=== PATIENT | male | born 1965 ===

== ENCOUNTER 2017-12-06 05:11 | Inpatient (IN) | payer OTHER ==
[~2017-12-06] VITALS: Ht 167.6 cm; Wt 71.7 kg
[2017-12-06] VITALS (15 sets, daily range): BP systolic 108–130; BP diastolic 49–77
[2017-12-06] MEDS ORDERED: GABAPENTIN300 MG ORAL (06:34)
[2017-12-06] MEDS ORDERED: BACLOFEN10 MG ORAL (06:34)
[2017-12-06] MEDS ORDERED: IBUPROFEN600 MG ORAL (06:34)
[2017-12-06] MEDS ORDERED: NORCO 5-325 TA1 EAC1 ORAL (06:34)
[2017-12-06] MEDS ORDERED: ceFAZolin sod 2 GM in D5W 110 ML IVPB ONE (07:00)
[2017-12-06] MEDS ORDERED: Vancomycin 1gm inj IVPB ONE (07:19)
[2017-12-06] MEDS ORDERED: Lidocaine 1% 10mg/ml/Epi 0.005mg/ml 30ml vial INJ ONE (07:20)
[2017-12-06] MEDS ORDERED: Succinylcholine 20mg/ml 10ml vial ONE (07:20)
[2017-12-06] MEDS ORDERED: Zemuron 50mg/5ml Inj IV ONE ×3 (07:20→09:32)
[2017-12-06] MEDS ORDERED: Thrombin 5000 units TOPIC ONE ×2 (07:20→09:28)
[2017-12-06] MEDS ORDERED: Bacitracin 50000 Units Vial ONE ×2 (07:20→10:13)
--- NOTE | 2017-12-06 07:27 | Pre-Procedure Note/Attestation ---
Pre-Procedure Note/Attestation Complete Prior to Procedure Procedure Narrative: L45 AND L5S1 DECOMPRESSION AND FUSION AND INSTRUMENTATION AND INTERBODY FUSION Indications for Procedure Pre-Operative Diagnosis: LUMBAR SPONDLOSIS WITH RADICULOPATHY DISCOGRAM CONCORDANT WITH NORMAL CONTROL Attestation I attest that I discussed the nature of the procedure; its benefits; risks and complications; and alternatives (and the risks and benefits of such alternatives ), prior to the procedure, with the patient (or the patient's legal sales representative). I attest that, if there was a reasonable possibility of needing a blood transfusion, the patient (or the patient's legal sales representative) was given the [place] Department of Health Services standardized written summary, pursuant to the [place] Blood Safety Act ([place] Health and Safety Code # 1645, as amended). I attest that I re-evaluated the patient just prior to the surgery and that there has been no change in the patient's H&P, except as documented below: DAVID THOMAS Dec 06, 2017 07:27
[2017-12-06] MEDS ORDERED: NS Irrig 1000ml IRRIG ONE ×2 (07:30→09:27)
[2017-12-06] MEDS ORDERED: Norco 5mg/325mg tab ORAL PRN (07:30)
[2017-12-06] MEDS ORDERED: Naloxone 0.4mg/ml Inj IVP PRN (07:30)
[2017-12-06] MEDS ORDERED: Midazolam 2mg/2ml Inj ONE (07:52)
[2017-12-06] MEDS ORDERED: Propofol 200mg/20ml IV ONE ×3 (07:54→11:10)
[2017-12-06] MEDS ORDERED: Lidocaine 1% MPF 10mg/ml 5ml ONE (08:23)
[2017-12-06] MEDS ORDERED: Labetalol 5mg/ml 20ml vial IV ONE (08:40)
[2017-12-06] MEDS ORDERED: LR 1000ml 1,000 ML IVLG SCH (09:01)
[2017-12-06] MEDS ORDERED: DiphenhydrAMINE 50mg/ml Inj IVP PRN (09:15)
[2017-12-06] MEDS ORDERED: Midazolam 2mg/2ml Inj IVP PRN (09:15)
[2017-12-06] MEDS ORDERED: Ketorolac 30mg Inj IV PRN (09:15)
[2017-12-06] MEDS ORDERED: fentaNYL 100 mcg/2 mL IV PRN (09:15)
[2017-12-06] MEDS ORDERED: Acetaminophen (Non formulary) 100 ML IV ONE (09:15)
[2017-12-06] MEDS ORDERED: Glycopyrrolate 0.2mg/ml 1ml Vial ONE (10:00)
[2017-12-06] MEDS ORDERED: fentaNYL 100 mcg/2 mL IV ONE (11:10)
[2017-12-06] MEDS ORDERED: Meperidine 50mg/ml Inj(FOR RIGORS ONLY) ONE (12:15)
[2017-12-06] MEDS ORDERED: Alfentanil 2ml Inj ONE (12:45)
--- NOTE | 2017-12-06 13:38 | Brief Operative Note ---
Immediate Post Operative Note Operative Note Pre-op Diagnosis: LUMBAR SPONDLOSIS WITH RADICULOPATHY DISCOGRAM CONCORDANT WITH NORMAL CONTROL Procedure: POSTERIOR FUSION, DECOMPRESSION AND INSTRUMENTATION AT L45 AND L5S1 Findings: consistent w/pre-op dx studies Surgeon: WILLIAM Fruit Canner: CATRACHITO Anesthesiologist: ROSEMARY Anesthesia: general Specimen: yes Complications: none Condition: stable Fluids: 1000CC CRYSTALLOID Estimated Blood Loss: minimal - 200CC Drains: hemovac Implant(s) used?: Yes DAVID THOMAS Dec 06, 2017 13:37
[2017-12-06] MEDS: Hydromorphone 0.5mg/0.5ml inj IVP PRN ×2 (13:45→14:00)
--- NOTE | 2017-12-06 15:01 | Diagnostic Imaging Report ---
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 Initial images demonstrate localizing needles. Completion images document posterior fusion and placement of disc spacers involving the lower lumbosacral spine. Impression: Intraoperative imaging, as described
[2017-12-06] MEDS: D5 1/2NS 1,000 ML IV SCH (16:12)
[2017-12-06] MEDS: ceFAZolin sod 1 GM in NS 55 ML IV SCH (17:14)
[2017-12-06] MEDS ORDERED: LR 1000ml ONE (17:30)
[2017-12-06] MEDS ORDERED: NS Irrig 1000ml ONE (17:30)
[2017-12-06] MEDS ORDERED: Sterile Water Irrig 1000ml IRRIG ONE (17:30)
[2017-12-06] MEDS: Docusate 100mg cap ORAL SCH (18:00)
--- NOTE | 2017-12-06 18:13 | General Progress Note ---
Progress Note Progress Note Doing well post op pain well controlled leg pain resolved avss a and o time 3 5/5 motor in the ue and le calves soft and nt lt intact a: doing well post op P: oob/pt brace pain management medicine follow up scds DAVID THOMAS Dec 06, 2017 18:13
[2017-12-06] MEDS: HYDROcodone/Acetamin 7.5/325 tab ORAL PRN (18:48)
[2017-12-07] MEDS: ceFAZolin sod 1 GM in NS 55 ML IV SCH ×2 (00:12→08:51)
[2017-12-07] MEDS: D5 1/2NS 1,000 ML IV SCH ×3 (03:22→21:52)
[2017-12-07 04:00] VITALS: BP 130/79
[2017-12-07 08:00] VITALS: BP 144/83
[2017-12-07] MEDS: Docusate 100mg cap ORAL SCH ×2 (08:51→18:09)
[2017-12-07] MEDS: HYDROcodone/Acetamin 7.5/325 tab ORAL PRN ×3 (11:32→22:28)
--- NOTE | 2017-12-07 11:55 | General Progress Note ---
Progress Note Progress Note DOING WELL LEG PAIN RESOLVED AVSS A AND O TIMES 3 INC CDI HV 50 MOTOR 5/5 IN THE LE CALVES SOFT AND NT DOING WELL POST OP OOB PT DC HU MEDICINE FU PAIN MANAGEMENT DAVID THOMAS Dec 07, 2017 11:55
[2017-12-07 12:00] VITALS: BP 94/62
--- NOTE | 2017-12-07 14:37 | 48 Hour Post Anesthesia Eval ---
Post Anesthesia Evaluation Procedure: TLIF L4-L5 L5-S1 Date of Evaluation: Dec 07, 2017 Time of Evaluation: 14:36 Blood Pressure Systolic: 104 0: 72 Pulse Rate: 68 Respiratory Rate: 22 Temperature (Fahrenheit): 97.6 O2 Sat by Pulse Oximetry: 98 Airway: patent Nausea: No Vomiting: No Pain Intensity: 3 Hydration Status: adequate Cardiopulmonary Status: stable Mental Status/LOC: patient returned to baseline Follow-up Care/Observations: n/a Post-Anesthesia Complications: none Follow-up care needed: N/A AMOL STONER M.D. Dec 07, 2017 14:37
--- NOTE | 2017-12-07 15:04 | History and Physical ---
History of Present Illness General Date patient seen: Dec 07, 2017 Present Illness HPI 52 year old gentleman with hx of Lumbar Spondylosis [place] [facility] L45 AND L5S1 DECOMPRESSION AND FUSION AND INSTRUMENTATION AND INTERBODY FUSION. Post operatively he is admitted to surgical floor for post op treatment. Allergies: Coded Allergies: No Known Allergies (Unverified , 12/04/17) Medication History Scheduled Baclofen* (Baclofen*), 10 MG ORAL BID, (Reported) Gabapentin* (Gabapentin*), 300 MG ORAL BEDTIME, (Reported) Scheduled PRN Hydrocodone Bit/Acetaminophen 5-325* ([place] 5-325 Tablet*), 1 TAB ORAL Q4H PRN for For Pain, (Reported) Ibuprofen* (Motrin*), 600 MG ORAL Q6H PRN for For Pain, (Reported) Patient History Healthcare decision maker LISSET SARAH- Resuscitation status Full Code Advanced Directive on File Past Medical/Surgical History Past Medical/Surgical History: (1) Lumbar radicular pain Review of Systems Constitutional: Reports: see HPI Musculoskeletal: Reports: see HPI Neurological: Reports: see HPI Physical Exam General Appearance: WD/WN, no apparent distress Lines, tubes and drains: peripheral, central line HEENT: normocephalic, atraumatic Neck: non-tender, normal alignment Respiratory/Chest: chest wall non-tender, lungs clear Breasts: no masses Cardiovascular/Chest: normal peripheral pulses, normal rate Abdomen: normal bowel sounds, non tender Genitourinary/Rectal: normal genital exam Extremities: normal range of motion Skin Exam: normal pigmentation Neurologic: conventional mortgage underwriter II-XII grossly normal Last 24 Hour Vital Signs Date Time Temp Pulse Resp B/P (MAP) Pulse Ox O2 Delivery O2 Flow Rate FiO2 12/07/17 14:37 207.7 68 22 98 12/07/17 12:00 98.6 69 17 94/62 98 98.6 12/07/17 08:00 97.6 65 19 144/83 97 97.6 12/07/17 05:01 98.6 12/07/17 04:31 98.6 12/07/17 04:00 98.3 68 20 130/79 100 Nasal Cannula 2.0 98.3 12/07/17 00:22 98.6 12/06/17 23:00 98.0 67 20 113/65 100 Nasal Cannula 2.0 98.0 12/06/17 20:00 97.7 69 20 115/72 100 Nasal Cannula 2.0 97.7 12/06/17 20:00 98.6 12/06/17 18:48 98.6 12/06/17 16:43 98.6 12/06/17 16:00 98.6 76 18 108/72 100 Nasal Cannula 2.0 98.6 12/06/17 15:00 98.8 87 16 115/72 100 Nasal Cannula 2.0 98.8 Intake and Output 12/06/17 12/07/17 19:00 07:00 Intake Total 1915 ml 1925 ml Output Total 1630 ml 720 ml Balance 285 ml 1205 ml Intake Oral 360 ml 720 ml IV Total 1555 ml 1205 ml Output Urine Total 1350 ml 700 ml Drainage Total 80 ml 20 ml Estimated Blood Loss 200 ml Height (Feet): 5 Height (Inches): 6.00 Weight (Pounds): 158 Medications Current Medications Medications (Trade) Dose Ordered Sig/Gloria Route PRN Reason Start Time Stop Time Status Last Admin Dose Admin Acetaminophen/ Hydrocodone Bitart ([place] 5/325) 1 tab Q3H PRN ORAL pain score 1-3 12/06/17 07:30 12/13/17 07:29 Acetaminophen/ Hydrocodone Bitart ([place] 7.5/325) 1 tab Q3H PRN ORAL pain score 4-6 12/06/17 07:30 12/13/17 07:29 12/07/17 11:32 Acetaminophen/ Hydrocodone Bitart ([place] 7.5/325) 2 tab Q3H PRN ORAL pain scale 7-10 12/06/17 07:30 12/13/17 07:29 12/06/17 18:48 Dextrose/Sodium Chloride 1,000 ml @ 100 mls/hr Q10H IV 12/06/17 15:45 01/05/18 15:44 12/07/17 11:31 Docusate Sodium (Colace) 100 mg TWICE A DAY ORAL 12/06/17 18:00 01/05/18 17:59 12/07/17 08:51 Hydromorphone HCl (Dilaudid) 1 mg Q2H PRN IVP Breakthrough pain 12/06/17 15:30 12/13/17 15:29 12/07/17 08:52 Hydromorphone HCl (Dilaudid) 1 mg Q4H PRN SUBQ Mild Pain 1-3 12/06/17 15:30 12/13/17 15:29 12/06/17 16:13 Hydromorphone HCl (Dilaudid) 2 mg Q3H PRN SUBQ Severe Pain (Pain Scale 7-10) 12/06/17 07:30 12/13/17 07:29 12/07/17 04:31 Hydromorphone HCl (Dilaudid) 2 mg Q4H PRN SUBQ Moderate Pain (Pain Scale 4-6) 12/06/17 07:30 12/13/17 07:29 Naloxone HCl (Narcan) 0.1 mg PRN PRN IVP RR<12/min, pt unarousable 12/06/17 07:30 01/05/18 07:29 Ondansetron HCl (Zofran) 4 mg Q6H PRN IVP Nausea & Vomiting 12/06/17 18:00 01/05/18 17:59 Assessment/Plan Problem List: (1) L45 AND L5S1 DECOMPRESSION AND FUSION Assessment/Plan post op care analgesics pt/ot dvt prophylaxis dc home when ok with surgeon Luis Carlos Whaley MD Dec 07, 2017 15:04
--- NOTE | 2017-12-07 15:15 | Operative Note - Dictated ---
DATE OF OPERATION: 12/06/2017 PREOPERATIVE DIAGNOSES: L4-L5 and L5-S1 spondylosis, stenosis, and lower extremity radiculopathy. POSTOPERATIVE DIAGNOSES: L4-L5 and L5-S1 spondylosis, stenosis, and lower extremity radiculopathy. PROCEDURE PERFORMED: 1. Posterior interbody fusion at L4-L5 and L5-S1. 2. Posterolateral fusion at L4-L5 and L5-S1. 3. Pedicle screw instrumentation at L4, L5, and S1. 4. Placement of PEEK interbody device at L4-L5 and L5-S1 and use of allograft and autograft for arthrodesis at L4-L5 and L5-S1. 5. Intraoperative use of microscope. SURGEON: Philip Alexander M.D. CUT PRESS OPERATOR: Julio Cesar Mcmahan M.D. ANESTHESIA: General endotracheal anesthesia. ANESTHESIOLOGIST: Gavin Ballesteros M.D. INTRAOPERATIVE FINDINGS: Spondylosis, stenosis at L4-L5 and L5-S1. ESTIMATED BLOOD LOSS: 200 mL. FLUIDS: 1000 mL of crystalloid. INDICATIONS: The patient had failed nonoperative treatment. The patient had preoperative diskography, which revealed a normal control at L3-L4 and concordant pain reproduction with positive diskography at L4-L5 and L5-S1. Option for above treatment was given. Risks, alternatives, and benefits were discussed with the patient at length. Risks include, but are not limited to, anesthesia complications including , bleeding, infection, dural tear, CSF leak, nerve root injury, pars fracture, instability, reherniation, as well as continued symptoms. The patient wished to proceed. Other complications include pseudarthrosis, screw cutoff, screw failure, need for revision surgery. DESCRIPTION OF OPERATION: The patient brought into the operating room supine on a stretcher. Appropriate IV lines were placed and 2 g of Ancef was administered. A surgical time-out was called. Anesthesia was induced and the patient was successfully intubated. Sequential compression devices were placed. A Brennan was placed under sterile conditions. The patient was gently turned prone on the Carlos frame table. All bony prominences were well padded and the abdomen was assured to lay freely preoperatively. EMG and SSEP leads were placed and remained stable throughout the case. The patient was prepped and draped in usual sterile fashion with alcohol, chlorhexidine scrub, ChloraPrep, and [place] draping. At this point, myself and my chemist assistant were prepped and gowned appropriately. A midline incision was carried out with a scalpel at L4-L5 and L5-S1. Incidentally, there was a transition of S1-S2 vertebrae, which was a nonmobile vestigial disk, which was identified preoperatively. Once this was accomplished, a subperiosteal dissection was done from L4 to S1. Facet joint capsule at L3-L4 was well preserved. Retractors were set in place and radiopaque markers were placed at the S1, L5, and L4 pedicle levels and L4-L5 and L5-S1 pedicles were positively identified. The intraoperatively sterilely draped microscope was used throughout the case from the skin incision to skin closure. Now, attention was first diverted to the left side. An inter-lumbar laminotomy medial facetectomy was done at L4-L5 and L5-S1. A Ambrose probe was used to probe the foramina and there was foraminal stenosis for the exiting nerve roots at both levels and at this point, with the protection of the [place] probe, attention was diverted to doing a posterior osteotomy on the left side for complete removal of the inferior and superior facet of L5-S1 for [id number] decompression. Once this was accomplished, hemostasis was achieved. The osteotomy was used with the use of a high-speed drill. Now, a [place] was used to retract the neural elements medially and a disk protrusion was found at L5-S1 with subarticular stenosis and a #11 blade was used to make a box incision into the posterior annulus and with disk preparation instrument including different shapes and sizes, pituitary rongeurs, Cheryl curette, box curette, ramses, and rasps, a subtotal diskectomy was done at L5-S1. Endplate cartilage was removed. Endplate bone was well-preserved and an interspinous distractor was used to distract the disk space gently and a trial from the [employer] was used. A 26 x 11 height x 10 mm width cage was chosen and was packed with bone morphogenetic protein allograft graft on putty as well as local autograft from the osteotomy and drillings and was tamped into the anterior interbody space. Once the BMP allograft and autograft was tamped, now attention was diverted to placing the PEEK interbody device. This was gently placed into the L5-S1 interbody space with excellent recreation of disk height and apposition against the endplate and it looked in excellent position on the biplanar fluoroscopy. Once this was done, now attention was diverted to the L4-L5 level on the left side and in the same order events with the same instruments, an inter-lumbar laminotomy medial facetectomy and foraminotomy was done. There was foraminal stenosis here as well as a disk protrusion causing impingement of the neural elements and the traversing and exiting nerve roots and therefore a posterior osteotomy was done at L4-L5 with the use of a high-speed drill and for a [id number] decompression and removal of the inferior and superior articular facets at L4-L5. Once this was accomplished, with the same instruments, a radical subtotal diskectomy was done and measurements with trials from the same RTI system was used and the same implant 26 x 11 x 10 mm was chosen, was packed with bone morphogenetic protein allograft and autograft. Bone morphogenetic protein allograft and autograft was placed anteriorly into the interbody space as well with a funnel. Now with an interspinous distractor, the disk space was gently distracted and the PEEK interbody device was placed at L4-L5 with excellent recreation of disk height, lordosis, and apposition against the endplates. Biplanar fluoroscopy revealed the instrumentation to be in good position. Now, attention was diverted to pedicle screw placement. Each mammillary process was drilled and with a pedicle finder, the center of the pedicle was found. There was a ball-tip probe was used in the pedicles , there were no cortical breaches. Appropriately sized 6.0 caps were used and the following pedicle screws were placed at L4 bilaterally 6.0 x 50 mm, at L5 bilaterally 6.0 x 45 mm, at S1 bilaterally 6.0 x 45 mm. Each screw had excellent purchase and looked in excellent position under biplanar fluoroscopy. Stimulus-evoked EMG was done at each screw and the screw was deemed to be safe. Once this was accomplished, appropriately sized 50 and 60 mm rods were placed in the tulips of the pedicle screws. Set screws were placed and torqued. There was no cross-threading. A decortication of the facet joint on the right in the transverse processes was done and onlay technique posterolateral fusion was done with Meagher allograft and local autograft. Before this was done, the wound was copiously irrigated with triple antibiotic solution multiple times where 3 mL of Tisseel were placed at each posterior annulotomy site. Hemostasis was achieved. A subfascial Hemovac drain was placed. The dorsal lumbar fascia was closed with #1 Vicryl sutures in a watertight interrupted fashion. The subdermal layer was closed with 2-0 Vicryl sutures. The skin was closed with Steri-Strips as well as Dermabond. Sterile dressing tape was placed. The patient was turned supine, was extubated in stable condition, was taken to recovery room in stable condition and found to be neurovascularly intact. Philip Alexander M.D. DR: AUDREY JOB#: [id number] CC: ABRAHAM
[2017-12-07 16:00] VITALS: BP 127/73
[2017-12-07 20:00] VITALS: BP 112/70
[2017-12-08] VITALS: BP 130/72
[2017-12-08 04:00] VITALS: BP 120/69
[2017-12-08] MEDS: HYDROcodone/Acetamin 7.5/325 tab ORAL PRN (04:39)
[2017-12-08] MEDS: D5 1/2NS 1,000 ML IV SCH (07:58)
[2017-12-08] MEDS: Docusate 100mg cap ORAL SCH ×2 (07:58→19:03)
[2017-12-08 09:00] VITALS: BP 123/71
[2017-12-08] MEDS ORDERED: D5 1/2NS 1000ml IV ONE ×3 (10:14→11:25)
[2017-12-08] MEDS ORDERED: Tubing IV Secondary IV ONE (11:25)
[2017-12-08] MEDS ORDERED: 1/2 NS 1000ml IV ONE (11:25)
[2017-12-08 12:00] VITALS: BP 119/60
--- NOTE | 2017-12-08 13:55 | Pulmonology Progress Note ---
Assessment/Plan Problems: (1) L45 AND L5S1 DECOMPRESSION AND FUSION Assessment/Plan symptomatic treatment analgesics pt/ot Subjective ROS Limited/Unobtainable: No Constitutional: Reports: no symptoms Allergies: Coded Allergies: No Known Allergies (Unverified , 12/04/17) Objective Last 24 Hour Vital Signs Date Time Temp Pulse Resp B/P (MAP) Pulse Ox O2 Delivery O2 Flow Rate FiO2 12/08/17 12:00 97.2 89 18 119/60 97 97.2 12/08/17 09:00 98.2 68 16 123/71 97 98.2 12/08/17 05:38 98.2 12/08/17 04:39 98.2 12/08/17 04:00 98.5 80 17 120/69 98 Room Air 98.5 12/08/17 00:00 98.2 84 20 130/72 96 Room Air 98.2 12/07/17 22:28 99.0 12/07/17 20:00 99.0 88 17 112/70 95 Room Air 99.0 12/07/17 18:18 97.0 12/07/17 16:00 97.0 89 19 127/73 96 97.0 12/07/17 14:37 207.7 68 22 98 Intake and Output 12/07/17 12/08/17 19:00 07:00 Intake Total 850 ml 2390 ml Output Total 1550 ml 855 ml Balance -700 ml 1535 ml Intake Oral 450 ml 1290 ml IV Total 400 ml 1100 ml Output Urine Total 1550 ml 850 ml Drainage Total 5 ml # Voids 3 General Appearance: WD/WN HEENT: normocephalic, anicteric Respiratory/Chest: chest wall non-tender, lungs clear Cardiovascular: normal peripheral pulses, regular rhythm Abdomen: normal bowel sounds, soft, non tender Extremities: no cyanosis Microbiology Date/Time Source Procedure Growth Status 12/06/17 06:25 Nasal Nares MRSA Culture - Final NO METHICILLIN RESISTANT STAPH AUREUS... Complete Current Medications Medications (Trade) Dose Ordered Sig/Gloria Route PRN Reason Start Time Stop Time Status Last Admin Dose Admin Acetaminophen/ Hydrocodone Bitart ([place] 5/325) 1 tab Q3H PRN ORAL pain score 1-3 12/06/17 07:30 12/13/17 07:29 Acetaminophen/ Hydrocodone Bitart ([place] 7.5/325) 1 tab Q3H PRN ORAL pain score 4-6 12/06/17 07:30 12/13/17 07:29 12/07/17 15:02 Acetaminophen/ Hydrocodone Bitart ([place] 7.5/325) 2 tab Q3H PRN ORAL pain scale 7-10 12/06/17 07:30 12/13/17 07:29 12/08/17 04:39 Dextrose/Sodium Chloride 1,000 ml @ 100 mls/hr Q10H IV 12/06/17 15:45 01/05/18 15:44 12/08/17 07:58 Docusate Sodium (Colace) 100 mg TWICE A DAY ORAL 12/06/17 18:00 01/05/18 17:59 12/08/17 07:58 Hydromorphone HCl (Dilaudid) 1 mg Q2H PRN IVP Breakthrough pain 12/06/17 15:30 12/13/17 15:29 12/07/17 08:52 Hydromorphone HCl (Dilaudid) 1 mg Q4H PRN SUBQ Mild Pain 1-3 12/06/17 15:30 12/13/17 15:29 12/06/17 16:13 Hydromorphone HCl (Dilaudid) 2 mg Q3H PRN SUBQ Severe Pain (Pain Scale 7-10) 12/06/17 07:30 12/13/17 07:29 12/08/17 09:47 Hydromorphone HCl (Dilaudid) 2 mg Q4H PRN SUBQ Moderate Pain (Pain Scale 4-6) 12/06/17 07:30 12/13/17 07:29 Naloxone HCl (Narcan) 0.1 mg PRN PRN IVP RR<12/min, pt unarousable 12/06/17 07:30 01/05/18 07:29 Ondansetron HCl (Zofran) 4 mg Q6H PRN IVP Nausea & Vomiting 12/06/17 18:00 01/05/18 17:59 Luis Carlos Whaley MD Dec 08, 2017 13:55
[2017-12-08 16:00] VITALS: BP 119/60
--- NOTE | 2017-12-08 18:16 | General Progress Note ---
Progress Note Progress Note DOING WELL NO LEG PAIN AVSS 5/5 IN THE LE HV PULLED INC CDI CALVES SOFT AND NT LT INTACT DOING WELL OOB AND PT DC TOMORROW DAVID THOMAS Dec 08, 2017 18:16
[2017-12-08 20:00] VITALS: BP 131/77
[2017-12-09] VITALS: BP 128/68
[2017-12-09 04:00] VITALS: BP 123/81
[2017-12-09] MEDS: HYDROcodone/Acetamin 7.5/325 tab ORAL PRN ×3 (04:02→11:16)
[2017-12-09 08:00] VITALS: BP 131/66
[2017-12-09] MEDS: Docusate 100mg cap ORAL SCH (08:26)
--- NOTE | 2017-12-09 09:27 | Pulmonology Progress Note ---
Assessment/Plan Problems: (1) L45 AND L5S1 DECOMPRESSION AND FUSION Assessment/Plan symptomatic treatment analgesics pt/ot ok to dc home with outpatient f/u Subjective ROS Limited/Unobtainable: No Allergies: Coded Allergies: No Known Allergies (Unverified , 12/04/17) Objective Last 24 Hour Vital Signs Date Time Temp Pulse Resp B/P (MAP) Pulse Ox O2 Delivery O2 Flow Rate FiO2 12/09/17 04:00 98.0 87 17 123/81 98 Room Air 98.0 12/09/17 00:00 99.2 82 18 128/68 95 Room Air 99.2 12/08/17 20:00 99.4 95 19 131/77 97 Room Air 99.4 12/08/17 17:06 97.2 12/08/17 16:00 97.2 103 18 119/60 97 97.2 12/08/17 12:00 97.2 89 18 119/60 97 97.2 Intake and Output 12/08/17 12/09/17 19:00 07:00 Intake Total 450 ml 480 ml Balance 450 ml 480 ml Intake Oral 450 ml 480 ml # Voids 4 3 Objective General Appearance: WD/WN HEENT: normocephalic, atraumatic Respiratory/Chest: chest wall non-tender, lungs clear Cardiovascular: normal rate Genitourinary: normal external genitalia Extremities: no clubbing Skin: no rash Current Medications Medications (Trade) Dose Ordered Sig/Gloria Route PRN Reason Start Time Stop Time Status Last Admin Dose Admin Acetaminophen/ Hydrocodone Bitart ([place] 5/325) 1 tab Q3H PRN ORAL pain score 1-3 12/06/17 07:30 12/13/17 07:29 Acetaminophen/ Hydrocodone Bitart ([place] 7.5/325) 1 tab Q3H PRN ORAL pain score 4-6 12/06/17 07:30 12/13/17 07:29 12/07/17 15:02 Acetaminophen/ Hydrocodone Bitart ([place] 7.5/325) 2 tab Q3H PRN ORAL pain scale 7-10 12/06/17 07:30 12/13/17 07:29 12/09/17 08:26 Docusate Sodium (Colace) 100 mg TWICE A DAY ORAL 12/06/17 18:00 01/05/18 17:59 12/09/17 08:26 Hydromorphone HCl (Dilaudid) 1 mg Q2H PRN IVP Breakthrough pain 12/06/17 15:30 12/13/17 15:29 12/07/17 08:52 Hydromorphone HCl (Dilaudid) 1 mg Q4H PRN SUBQ Mild Pain 1-3 12/06/17 15:30 12/13/17 15:29 12/06/17 16:13 Hydromorphone HCl (Dilaudid) 2 mg Q3H PRN SUBQ Severe Pain (Pain Scale 7-10) 12/06/17 07:30 12/13/17 07:29 12/08/17 22:02 Hydromorphone HCl (Dilaudid) 2 mg Q4H PRN SUBQ Moderate Pain (Pain Scale 4-6) 12/06/17 07:30 12/13/17 07:29 Naloxone HCl (Narcan) 0.1 mg PRN PRN IVP RR<12/min, pt unarousable 12/06/17 07:30 01/05/18 07:29 Ondansetron HCl (Zofran) 4 mg Q6H PRN IVP Nausea & Vomiting 12/06/17 18:00 01/05/18 17:59 Luis Carlos Whaley MD Dec 09, 2017 09:26
--- NOTE | 2017-12-12 15:20 | Discharge Summary ---
Discharge Summary Hospital Course Date of Admission Dec 06, 2017 at 05:11 Date of Discharge Dec 09, 2017 at 13:00 Admitting Diagnosis JAZLYN Ervin is a 52 year old male who was admitted on Dec 06, 2017 at 05:11 for Lumbar Radiculopathy Hospital Course [id number] Discharge Discharge Disposition Patient was discharged to Home (01) Liane Herrera NP Dec 12, 2017 15:20
--- NOTE | 2017-12-12 19:30 | Discharge Summary 2 SIG ---
DATE OF ADMISSION: 12/06/2017 DATE OF DISCHARGE: 12/09/2017 SHORT STORY WRITER: Luis Carlos Whaley M.D. BRIEF HOSPITAL COURSE: The patient is a 52-year-old gentleman with history of lumbar spondylosis, presented to [facility] for L4-L5 and L5-S1 decompression and fusion and instrumentation and interbody fusion. Postoperatively, he was admitted to surgical floor. He was given pain management and was placed on SCDs for DVT prophylaxis. He underwent PT and OT. Diet was advanced. Hemovac was eventually pulled out. Incision was clean, dry, and intact. Calves were soft and nontender. He was doing well and ambulating well. He had good pain control. He was eventually discharged home. FINAL DIAGNOSES: 1. L4-L5 and L5-S1 spondylosis, stenosis, and lower extremity radiculopathy. 2. Status post posterior interbody fusion at L4-L5 and L5-S1. 3. Posterolateral fusion at L4-L5 and L5-S1. 4. Pedicle screw instrumentation at L4, L5, and S1. Please refer to operative report. DISPOSITION: The patient was discharged home. DISCHARGE MEDICATIONS: Refer to medication list. DISCHARGE INSTRUCTIONS: Follow up with surgery in a week. Philip Alexander M.D. I have been assigned to dictate discharge summary on this account and I was not involved in the patient's management. Liane Herrera N.P. DR: URIEL JOB#: [id number] CC:
== END 2017-12-09 13:00 | disposition home or self-care (01) | DRG 460 ==
LOC: SDSOVERFLO 05:11 → 3E 15:15
PROC: 3E0U0GB Introduction of Recombinant Bone Morphogenetic Protein into Joints, Open Approach (ICD-10-PCS; principal; 2017-12-06 07:30)
PROC: 0SG30AJ Fusion of Lumbosacral Joint with Interbody Fusion Device, Posterior Approach, Anterior Column, Open Approach (ICD-10-PCS; principal; 2017-12-06 07:30)
PROC: 0SB20ZZ Excision of Lumbar Vertebral Disc, Open Approach (ICD-10-PCS; principal; 2017-12-06 07:30)
PROC: 01NB0ZZ Release Lumbar Nerve, Open Approach (ICD-10-PCS; principal; 2017-12-06 07:30)
PROC: 0SB40ZZ Excision of Lumbosacral Disc, Open Approach (ICD-10-PCS; principal; 2017-12-06 07:30)
PROC: 0SG00AJ Fusion of Lumbar Vertebral Joint with Interbody Fusion Device, Posterior Approach, Anterior Column, Open Approach (ICD-10-PCS; principal; 2017-12-06 07:30)
DX: M47.26 Other spondylosis with radiculopathy, lumbar region (principal); M47.27 Other spondylosis with radiculopathy, lumbosacral region; M48.061 Spinal stenosis, lumbar region without neurogenic claudication; M48.07 Spinal stenosis, lumbosacral region
CPT/HCPCS: 36415; 72020; 76001; 86850; 86900; 86901; 87081; 94003; 94150; J2250; J2405; J3490